=== PATIENT | female | born 1970 | race Caucasian/White ===

== ENCOUNTER → 2016-09-16 | Outpatient (CLI) | payer OTHER ==
--- NOTE | 2016-09-17 00:43 | REP ---
Clinical: Pain. Technique: AP, lateral, bilateral oblique views of the left ankle. Findings: Diffuse soft tissue swelling is appreciated along with small avulsion fracture off the distal fibula / lateral malleolus. Ankle mortise intact. No other fracture or dislocation identified. Impression: Diffuse soft tissue swelling with small avulsion fracture of the lateral malleolus. Signed by Leodan Srinivasan MD 09/17/2016 12:35 A
== END ==
LOC: M WUC 10:38
PROVIDERS: ATTEND Physician Assistant
DX: S82.65XA Nondisplaced fracture of lateral malleolus of left fibula, initial encounter for closed fracture (principal); X58.XXXA Exposure to other specified factors, initial encounter; Y92.9 Unspecified place or not applicable; Y93.9 Activity, unspecified; Y99.9 Unspecified external cause status

== ENCOUNTER → 2017-06-04 | Outpatient (REF) | payer OTHER ==
[2017-06-04 14:12] LABS: RHEUMATOID FACTOR QUANT < 10.0 IU/ML (0-15.0)
[2017-06-04 14:19] LABS: ERYTHROCYTE SEDIMENTATION RATE 3 mm/hr (0-20)
[2017-06-04 14:19] LABS: FOLATE 21.5 NG/ML; VITAMIN B12 LEVEL 455 PG/ML
[2017-06-05 14:14] LABS: ANTINUCLEAR ANTIBODIES DIRECT Negative (Negative)
== END ==
LOC: M LABNEURO 09:03
DX: G43.709 Chronic migraine without aura, not intractable, without status migrainosus (principal)

== ENCOUNTER → 2018-02-02 | Outpatient (CLI) | payer OTHER ==
[2018-02-02 17:04] LABS: BASO # 0.1 10^3/uL (0.0-0.2); BASO % 0.8 % (0.0-1.0); EOS # 0.4 10^3/uL (0.0-0.50); EOS % 5.1 % (0.0-3.0); HEMATOCRIT 38.5 % (36.0-47.0); IMMATURE GRANULOCYTE % 0.1 % (0-3.0); LYMPH # 3.8 10^3/uL (1.5-4.5); MEAN CORPUSCULAR HEMOGLOBIN 30.4 pg (27.0-33.0); MEAN CORPUSCULAR HGB CONC 33.8 g/dl (32.0-36.5); MEAN CORPUSCULAR VOLUME 90.2 fl (80.0-96.0); MONO # 0.6 10^3/uL (0.0-0.8); MONO % 7.7 % (0.0-5.0); NEUTROPHILS # 3.3 10^3/uL (1.8-7.7); NEUTROPHILS % 40.3 % (36.0-66.0); PLATELET COUNT, AUTOMATED 267 10^3/uL (150-450); RED BLOOD COUNT 4.27 10^6/uL (4.00-5.40); RED CELL DISTRIBUTION WIDTH 13.1 % (11.5-14.5); WHITE BLOOD COUNT 8.3 10^3/uL (4.0-10.0)
[2018-02-02 17:59] LABS: ALBUMIN 3.8 GM/DL (3.2-5.2); ALBUMIN/GLOBULIN RATIO 1.12 (1.00-1.93); ALKALINE PHOSPHATASE 55 U/L (45-117); ALT/SGPT 19 U/L (12-78); ANION GAP 7 MEQ/L (8-16); AST/SGOT 12 U/L (7-37); BILIRUBIN,DIRECT < 0.1 MG/DL (0.0-0.2); BILIRUBIN,TOTAL 0.2 MG/DL (0.2-1.0); BLOOD UREA NITROGEN 11 MG/DL (7-18); CALCIUM LEVEL 8.7 MG/DL (8.5-10.1); CARBON DIOXIDE LEVEL 29 MEQ/L (21-32); CHLORIDE LEVEL 108 MEQ/L (98-107); CREATININE FOR GFR 0.74 MG/DL (0.55-1.30); GLOMERULAR FILTRATION RATE > 60.0 (>58); GLUCOSE, FASTING 60 MG/DL (70-100); POTASSIUM SERUM 4.1 MEQ/L (3.5-5.1); SODIUM LEVEL 144 MEQ/L (136-145); TOTAL PROTEIN 7.2 GM/DL (6.4-8.2)
== END ==
LOC: M LAB 16:33
DX: L40.0 Psoriasis vulgaris (principal); Z51.81 Encounter for therapeutic drug level monitoring; Z79.899 Other long term (current) drug therapy
CPT/HCPCS: 80076

== ENCOUNTER → 2018-09-08 | Outpatient (REF) | payer OTHER ==
[2018-09-11 00:08] LABS: ANTI DOUBLE STRAND-DNA AB <1 IU/mL (0-9); ANTINUCLEAR ANTIBODIES DIRECT Positive (Negative); RNP ANTIBODIES <0.2 AI (0.0-0.9); SJOGREN'S ANTI SS-A <0.2 AI (0.0-0.9); SJOGREN'S ANTI SS-B <0.2 AI (0.0-0.9); SMITH ANTIBODIES <0.2 AI (0.0-0.9)
== END ==
LOC: M LAB REF 16:37
PROVIDERS: ATTEND Nurse Practitioner Family
DX: L40.9 Psoriasis, unspecified (principal); M25.50 Pain in unspecified joint

== ENCOUNTER → 2019-06-01 | Outpatient (CLI) | payer OTHER | LOC: M LAB 14:48 | PROVIDERS: ATTEND Nurse Practitioner Family | DX: Z51.81 Encounter for therapeutic drug level monitoring (principal); Z79.899 Other long term (current) drug therapy; L40.0 Psoriasis vulgaris ==

== ENCOUNTER → 2020-01-28 | Outpatient (CLI) | payer OTHER ==
[~2020-01-28] MED LIST: LEVO100T5; RIZA10TA58; TREM100I
== END ==
LOC: M LABSMTC 09:54
PROVIDERS: ATTEND Anesthesiology
DX: Z01.812 Encounter for preprocedural laboratory examination (principal); Z20.828 Contact with and (suspected) exposure to other viral communicable diseases
CPT/HCPCS: C9803; U0003

== ENCOUNTER 2020-02-02 06:57 | Day surgery (SDC) | payer OTHER ==
[~2020-02-02] VITALS: Ht 162.6 cm; Wt 54.8 kg
[~2020-02-02 06:57] MED LIST changes: +NS 1,000 ML IV ONE
[2020-02-02] MEDS ORDERED: LIDOCAINE 2% 100MG/5ML SDV (FOR ANES.) As Ordered ONE (07:04)
[2020-02-02] MEDS ORDERED: propofoL 200 MG/20 ML VIAL As Ordered ONE (07:04)
[2020-02-02 08:17] VITALS: BP 165/89
--- NOTE | 2020-02-02 13:05 | ROOR ---
Patient Name: Nicole Reeves Procedure Date: 02/02/2020 7:43 AM Date of : 1970 Age: 49 Room: [facility] Gender: Female Note Status: Finalized Procedure: Total Colonoscopy to Cecum + ileoscopy Indications: Colon cancer screening in patient at increased risk: Colorectal cancer in mother Providers: Elliot Macario MD Referring MD: Ros MATUTE MD Requesting Provider: Medicines: Monitored Anesthesia Care Complications: No immediate complications. Procedure: Pre-Anesthesia Assessment: - The heart rate, respiratory rate, oxygen saturations, blood pressure, adequacy of pulmonary ventilation, and response to care were monitored throughout the procedure. The Colonoscope was introduced through the anus and advanced to the cecum, identified by appendiceal orifice and ileocecal valve. Findings: The perianal and digital rectal examinations were normal. Non-bleeding internal hemorrhoids were found during retroflexion. The hemorrhoids were small and Grade I (internal hemorrhoids that do not prolapse). No other significant abnormalities were identified in a careful examination of the remainder of the colon. The exam was otherwise without abnormality on direct and retroflexion views. The terminal ileum appeared normal. Impression: - Non-bleeding internal hemorrhoids. - The examination was otherwise normal on direct and retroflexion views. - The examined portion of the ileum was normal. - No specimens collected. - The exam was otherwise normal to the cecum. Recommendation: - Patient has a contact number available for emergencies. The signs and symptoms of potential delayed complications were discussed with the patient. Return to normal activities tomorrow. Written discharge instructions were provided to the patient. - Discharge patient to home. - High fiber diet. - Repeat colonoscopy in 5 years for screening purposes. - Return to referring physician. - The findings and recommendations were discussed with the patient. Elliot Macario MD Elliot Macario MD 02/02/2020 1:05:20 PM Electronically signed by Elliot Macario MD Number of Addenda: 0 Note Initiated On: 02/02/2020 7:43 AM Estimated Blood Loss: Estimated blood loss: none.
== END 2020-02-02 08:19 | disposition home or self-care (01) ==
LOC: M OPP 06:57
PROVIDERS: ATTEND Internal Medicine Gastroenterology
DX: Z12.11 Encounter for screening for malignant neoplasm of colon (principal); Z80.0 Family history of malignant neoplasm of digestive organs; K64.0 First degree hemorrhoids; Z79.899 Other long term (current) drug therapy; Z88.0 Allergy status to penicillin

== ENCOUNTER 2020-05-31 08:54 | Emergency (ER) | payer OTHER ==
[~2020-05-31] VITALS: Ht 162.6 cm; Wt 55.2 kg
[~2020-05-31 08:54] MED LIST changes: -NS 1,000 ML IV ONE
[2020-05-31] MEDS ORDERED: ACETAMINOPHEN 500 MG TAB PO ONE (09:40)
--- NOTE | 2020-05-31 10:10 | REP ---
INDICATION: fall COMPARISON: 09/30/2006 TECHNIQUE: Axial noncontrast images from the skull base to the vertex with coronal reformations. This CT examination was performed using the following dose reduction techniques: Automated exposure control, adjustment of mA and/or kv according to the patient's size, and use of iterative reconstruction technique. FINDINGS: The ventricles, sulci, and cisterns are normal in position and appearance. Saavedra-white differentiation is maintained. No acute intracranial hemorrhage, mass/mass effect, pathology or trauma/injury. No evidence for acute infarction. No extra-axial fluid collection. Calvarium is intact. Paranasal sinuses and mastoid air cells are clear. IMPRESSION: Normal noncontrast head CT. No evidence for acute intracranial pathology or trauma/injury. <Electronically signed by Leodan Srinivasan > 05/31/20 1007
--- NOTE | 2020-05-31 10:13 | REP ---
INDICATION: fall COMPARISON: None. TECHNIQUE: Axial noncontrast images from the skull base to the thoracic inlet with coronal and sagittal re-formations This CT examination was performed using the following dose reduction techniques: Automated exposure control, adjustment of mA and/or kv according to the patient's size, and use of iterative reconstruction technique. FINDINGS: Focal advanced degenerative changes are appreciated at C4-5, C5-6, and to a lesser extent C3-4. C4-5 level demonstrates endplate sclerosis, disc space narrowing, marginal and posterior osteophytosis, and minimal chronic posterior subluxation of approximately 1.2 mm. C5-6 level demonstrates endplate sclerosis, marginal and small posterior osteophyte with satisfactory alignment and associated disc space narrowing. There is no evidence for acute fracture/compression injury. Posterior elements and spinous processes demonstrate mild chronic facet hypertrophy. Paravertebral soft tissues are normal. Spinal canal is grossly patent. IMPRESSION: Chronic degenerative changes. No evidence for acute trauma/injury. <Electronically signed by Leodan Srinivasan > 05/31/20 1443
[2020-05-31 11:05] VITALS: BP 164/82
== END 2020-05-31 11:06 | disposition home or self-care (01) ==
LOC: M ED 08:54
DX: S09.90XA Unspecified injury of head, initial encounter (principal); W00.0XXA Fall on same level due to ice and snow, initial encounter; Y92.89 Other specified places as the place of occurrence of the external cause; Y93.9 Activity, unspecified; Y99.0 Civilian activity done for income or pay; M50.321 Other cervical disc degeneration at C4-C5 level; M50.322 Other cervical disc degeneration at C5-C6 level; M48.02 Spinal stenosis, cervical region; E03.9 Hypothyroidism, unspecified; G43.909 Migraine, unspecified, not intractable, without status migrainosus; L40.9 Psoriasis, unspecified; Z88.0 Allergy status to penicillin; Z79.899 Other long term (current) drug therapy

== ENCOUNTER → 2021-01-30 | Outpatient (CLI) | payer OTHER ==
[~2021-01-30] MED LIST changes: -RIZA10TA58; +RIZA10TA58 PO; +SYNT88TA2 PO; -TREM100I; +TREM100I SC
[2021-01-30 09:44] LABS: HEMATOCRIT 42.1 % (36.0-47.0); HEMOGLOBIN 13.5 g/dl (12.0-15.5); MEAN CORPUSCULAR HEMOGLOBIN 29.3 pg (27.0-33.0); MEAN CORPUSCULAR HGB CONC 32.1 g/dl (32.0-36.5); MEAN CORPUSCULAR VOLUME 91.3 fl (80.0-96.0); PLATELET COUNT, AUTOMATED 292 10^3/uL (150-450); RED BLOOD COUNT 4.61 10^6/uL (4.00-5.40); WHITE BLOOD COUNT 7.6 10^3/uL (4.0-10.0)
[2021-01-30 10:06] LABS: BLOOD UREA NITROGEN 8 MG/DL (7-18); CALCIUM LEVEL 8.9 MG/DL (8.5-10.1); CARBON DIOXIDE LEVEL 31 MEQ/L (21-32); CHLORIDE LEVEL 106 MEQ/L (98-107); CREATININE FOR GFR 0.69 MG/DL (0.55-1.30); GLOMERULAR FILTRATION RATE > 60.0 (>51); GLUCOSE, FASTING 79 MG/DL (70-100); POTASSIUM SERUM 4.2 MEQ/L (3.5-5.1); SODIUM LEVEL 140 MEQ/L (136-145)
--- NOTE | 2021-01-30 21:25 | ECGEPIP ---
[facility] Test Date: 2021-01-30 Pat Name: NORTH WOOD Department: Room: - Gender: Female Staff Home Therapy Rn: LAURYN : 1970 Requested By: Bob Rodriguez Order Number: [id number] Reading MD: Wellington Yip Measurements Intervals [place] Rate: 73 P: 76 VT: 158 QRS: 24 QRSD: 80 T: 52 QT: 386 QTc: 425 Interpretive Statements Sinus rhythm with sinus arrhythmia Cannot rule out Anterior infarct , age undetermined (possibly lead placement) No prior Electronically Signed on 01-30-2021 21:25:50 EDT by Wellington Yip
== END ==
LOC: M EKG 08:26
PROVIDERS: ATTEND Podiatrist
DX: Z01.818 Encounter for other preprocedural examination (principal); M20.21 Hallux rigidus, right foot

== ENCOUNTER → 2021-02-05 | Outpatient (CLI) | payer OTHER | LOC: M LABSMTC 09:58 | PROVIDERS: ATTEND Anesthesiology | DX: Z01.812 Encounter for preprocedural laboratory examination (principal); Z20.822 Contact with and (suspected) exposure to COVID-19 ==

== ENCOUNTER 2021-02-09 07:29 | Day surgery (SDC) | payer OTHER ==
[~2021-02-09] VITALS: Ht 162.6 cm; Wt 54.0 kg
[~2021-02-09 07:29] MED LIST changes: +LIDOCAINE 1% MDV 20ML VIAL SQ PRN; +LR 1,000 ML IV ONE; +VANCOMYCIN HCL 1,000 MG, VIAL MATE ADAPTER 1 EACH in NS 250 ML IV ONE
--- OUTSIDE RECORDS SUMMARY | 2021-02-09 07:32 | CCD | Continuity of Care Document ---
Author Organization Unknown Address Unknown Phone Unavailable Care Team Providers Care Servomechanism Designer Name Role Phone Sarah Coats AUTM [phone] Problems Active Problems Provider Date Hypothyroidism Sraah Pauly, SPORTS CARTOONIST Onset: 05/25/2020 Psoriasis Sarah Pauly, SPORTS CARTOONIST Onset: 05/25/2020 Migraine Sarah Pauly, SPORTS CARTOONIST Onset: 05/25/2020 Herpesvirus infection Sarah Pauly, SPORTS CARTOONIST Onset: 05/25/2020 Polyarthropathy Sarah Pauly, SPORTS CARTOONIST Onset: 05/25/2020 Social History Type Date Description Comments Sex Unknown ETOH Use Consumes 2 glasses of wine per w craig OR 2 BEERS Tobacco Use Start: Unknown Patient has never smoked Allergies and adverse reactions Active Allergies Criticality Reaction | Severity Comments Date Penicillin Unable to assess criticality RASH 09/09/2011 Medications Active Medications SIG Qnty Indications Ordering Provide r Date Levothyroxine Sodium 88mcg Tablets Take One Tablet By Mouth Every Day 90tabs Ros Astorga M.D. 05/25/2020 Tremfya 100mg/ml Solution Pen-Inje ct inject q8 weeks Ashlie Garcia,SPORTS CARTOONIST 09/08/2018 Maxalt-POWERHOUSE HELPER 10mg Tablets Dispers 1 at beginning of h/a, may repeat in 2 hours if needed 9tabs Gianni Castellanos MD 01/09/2017 Valtrex 1gm Tablets 2 pills twice a day x 1 day as needed 4tabs CHRISTELLE Good 12/29/2014 Zovirax 5% Cream use 5x'daily prn 5gm Gianni Castellanos MD 08/12/2012 Immunizations CPT Code Status Date Vaccine Lot # U-[id number] Given 12/29/2017 Influenza,Unspecified Vital Signs Date Vital Result Comment 05/25/2020 1:01pm BP Systolic 126 mmHg RT Arm BP Diastolic 60 mmHg RT Arm Heart Rate 72 /min Height 63.50 inches 5'3.50" Weight 120.50 lb BMI (Body Mass Index) 21.0 kg/m2 10/11/2019 8:33am BP Systolic 118 mmHg BP Diastolic 66 mmHg Results Test Acquired Date Facility Test Result H/L Range Note Complete Blood Count 01/30/2021 [facility] [address], [place] [id number] [phone] White Blood Count 7.6 10 Normal 4.0-10.0 Red Blood Count 4.61 10 Normal 4.00-5.40 Hemoglobin 13.5 g/dL Normal 12.0-15.5 Hematocrit 42.1 % Normal 36.0-47.0 Mean Corpuscular Volume 91.3 fl Normal 80.0-96.0 Mean Corpuscular Hemoglobin 29.3 pg Normal 27.0-33.0 Mean Corpuscular HGB Conc 32.1 g/dL Normal 32.0-36.5 Red Cell Distribution Width 14.1 % Normal 11.5-14.5 Platelet Count, Automated 292 10 Normal 150-450 Nucleated Red Blood Cell % 0.0 % Normal 0-0 Basic Metabolic Profile 01/30/2021 [facility] [address], [place] [id number] [phone] Glucose, Fasting 79 mg/dL Normal 70-100 Blood Urea Nitrogen 8 mg/dL Normal 7-18 Creatinine For GFR 0.69 mg/dL Normal 0.55-1.30 Glomerular Filtration Rate > 60.0 Normal >51 1 Sodium Level 140 mEq/L Normal 136-145 Potassium Serum 4.2 mEq/L Normal 3.5-5.1 Chloride Level 106 mEq/L Normal 98-107 Carbon Dioxide Level 31 mEq/L Normal 21-32 Anion Gap 3 mEq/L Low 8-16 Calcium Level 8.9 mg/dL Normal 8.5-10.1 1 Units are mL/min/1.73 m2 Chronic Kidney Disease Staging per NKF: Stage I & II GFR >=60 Normal to Mildly Decreased Stage III GFR 30-59 Moderately Decreased Stage IV GFR 15-29 Severely Decreased Stage V GFR <15 Very Little GFR Left ESRD GFR <15 on OPERATIONS SUPERINTENDENT Procedures Date Code Description Status 02/02/2020 [id number] Colonoscopy Completed Medical Devices Description No Information Available Encounters Description No Information Available Assessments Description No Information Available Plan of Treatment Future Appointment(s):* 05/30/2021 7:50 am - Lab Schedule at [facility] * 06/01/2021 8:00 am - HAKAN Franks at [facility] 05/25/2020 - HAKAN Franks* Z00.00 Encounter for general adult medical examination without abnormal findings* Comments:* Follow up annually and PRN.COVID diagnosis coverage letter is provided. * E03.9 Hypothyroidism, unspecified* Comments:* Thyroid is oversupplemented, decrease levothyroxine to 88 mcg daily and will come back for repeat TSH in 6 weeks. * B00.1 Herpesviral vesicular dermatitis* Comments:* No current issues, but uses Valtrex/Zovirax when needed. * L40.9 Psoriasis, unspecified* Comments:* Sees dermatology; on Tremfya which has improved her symptoms drastically. * G43.909 Migraine, unspecified, not intractable, without status migra* Comments:* Well controlled using Maxalt when needed. * Z80.0 Family history of malignant neoplasm of digestive organs* Comments:* Colonoscopy is UTD and due in 2024. * M13.0 Polyarthritis, unspecified* Comments:* Has been referred to [facility] rheumatology as per CLEANER ASSISTANT as she also has psoriasis and a family history of psoriatic arthritis. * H61.21 Impacted cerumen, right ear* Comments:* Flushed with warm water by Magdaleno Dumont LPN * Z13.89 Encounter for screening for other disorder * All * New Medication:* Levothyroxine Sodium 88 mcg - Take One Tablet By Mouth Every Day * Comments:* Tetanus none. Flu shot done. Pap smear up to date through Dr. Calixto, mammogram 2019 at [facility]. BSE monthly no changes. Colonoscopy 02/02/20 and f/u recommended in 5 years. COVID 19 vaccine covered diagnosis letter provided. F/U TSH in 6 weeks, routine follow up in one year and PRN.Follow up in one year with repeat labs at that time.Encouraged balanced diet, 4-5 servings of fresh fruits and vegetables daily. Recommended at least 30 minutes of exercise daily and eight 8 oz. glasses of water daily.SBE monthly.RTC PRN for acute illness. COVID precautions are discussed and social distancing/mask use/ frequent hand washing and sanitizing are encouraged.COVID 19 vaccine discussed and recommended. Functional Status Description No Information Available Mental Status Description No Information Available Referrals Description No Information Available
--- OUTSIDE RECORDS SUMMARY | 2021-02-09 07:33 | CCD ---
Author Author [facility] Organization [facility] Address Unknown Phone Unavailable Care Team Providers Care Roll Mill Operator Name Role Phone Pauly, Sarah AVIATION ELECTRICIAN Unavailable Unavailable Pauly, Sarah AVIATION ELECTRICIAN Unavailable Unavailable Pauly, Sarah AVIATION ELECTRICIAN Unavailable Unavailable Pauly, Sarah AVIATION ELECTRICIAN Unavailable Unavailable Pauly, Sarah AVIATION ELECTRICIAN Unavailable Unavailable Pauly, Sarah AVIATION ELECTRICIAN Unavailable Unavailable Pauly, Sarah AVIATION ELECTRICIAN Unavailable Unavailable Pauly, Sarah AVIATION ELECTRICIAN Unavailable Unavailable Pauly, Sarah AVIATION ELECTRICIAN Unavailable Unavailable Pauly, Sarah AVIATION ELECTRICIAN Unavailable Unavailable Pauly, Sarah AVIATION ELECTRICIAN Unavailable Unavailable Pauly, Sarah AVIATION ELECTRICIAN Unavailable Unavailable Pauly, Sarah AVIATION ELECTRICIAN Unavailable Unavailable Pauly, Sarah AVIATION ELECTRICIAN Unavailable Unavailable Pauly, Sarah AVIATION ELECTRICIAN Unavailable Unavailable Pauly, Sarah AVIATION ELECTRICIAN Unavailable Unavailable Pauly, Sarah AVIATION ELECTRICIAN Unavailable Unavailable Pauly, Sarah AVIATION ELECTRICIAN Unavailable Unavailable Pauly, Sarah AVIATION ELECTRICIAN Unavailable Unavailable Pauly, Sarah AVIATION ELECTRICIAN Unavailable Unavailable Pauly, Sarah AVIATION ELECTRICIAN Unavailable Unavailable Pauly, Sarah AVIATION ELECTRICIAN Unavailable Unavailable Pauly, Sarah AVIATION ELECTRICIAN Unavailable Unavailable Pauly, Sarah AVIATION ELECTRICIAN Unavailable Unavailable Pauly, Sarah AVIATION ELECTRICIAN Unavailable Unavailable Pauly, Sarah AVIATION ELECTRICIAN Unavailable Unavailable Pauly, Sarah AVIATION ELECTRICIAN Unavailable Unavailable Pauly, Sarah AVIATION ELECTRICIAN Unavailable Unavailable Pauly, Sarah AVIATION ELECTRICIAN Unavailable Unavailable Pauly, Sarah AVIATION ELECTRICIAN Unavailable Unavailable Pauly, Sarah AVIATION ELECTRICIAN Unavailable Unavailable Pauly, Sarah AVIATION ELECTRICIAN Unavailable Unavailable Pauly, Sarah AVIATION ELECTRICIAN Unavailable Unavailable Pauly, Sarah AVIATION ELECTRICIAN Unavailable Unavailable Pauly, Sarah AVIATION ELECTRICIAN Unavailable Unavailable JIMÉNEZ, L JERALD FRANZ Unavailable Unavailable JIMÉNEZ, L JERALD FRANZ Unavailable Unavailable JIMÉNEZ, L JERALD FRANZ Unavailable Unavailable JIMÉNEZ, L JERALD FRANZ Unavailable Unavailable JIMÉNEZ, L JERALD FRANZ Unavailable Unavailable JIMÉNEZ, L JERALD FRANZ Unavailable Unavailable JIMÉNEZ, L JERALD FRANZ Unavailable Unavailable JIMÉNEZ, L JERALD FRANZ Unavailable Unavailable JIMÉNEZ, L JERALD FRANZ Unavailable Unavailable JIMÉNEZ, L JERALD FRANZ Unavailable Unavailable JIMÉNEZ, L JERALD FRANZ Unavailable Unavailable JIMÉNEZ, L JERALD FRANZ Unavailable Unavailable JIMÉNEZ, L JERALD FRANZ Unavailable Unavailable JIMÉNEZ, L JERALD FRANZ Unavailable Unavailable JIMÉNEZ, L JERALD FRANZ Unavailable Unavailable JIMÉNEZ, L JERALD FRANZ Unavailable Unavailable JIMÉNEZ, L JERALD FRANZ Unavailable Unavailable JIMÉNEZ, L JERALD FRANZ Unavailable Unavailable JIMÉNEZ, L JERALD FRANZ Unavailable Unavailable JIMÉNEZ, L JERALD FRANZ Unavailable Unavailable JIMÉNEZ, L JERALD FRANZ Unavailable Unavailable JIMÉNEZ, L JERALD FRANZ Unavailable Unavailable JIMÉNEZ, L JERALD FRANZ Unavailable Unavailable JIMÉNEZ, L JERALD FRANZ Unavailable Unavailable JIMÉNEZ, L JERALD FRANZ Unavailable Unavailable JIMÉNEZ, L JERALD FRANZ Unavailable Unavailable JIMÉNEZ, L JERALD FRANZ Unavailable Unavailable JIMÉNEZ, L JERALD FRANZ Unavailable Unavailable JIMÉNEZ, L JERALD FRANZ Unavailable Unavailable JIMÉNEZ, L JERALD FRANZ Unavailable Unavailable JIMÉNEZ, L JERALD FRANZ Unavailable Unavailable JIMÉNEZ, L JERALD FRANZ Unavailable Unavailable JIMÉNEZ, L JERALD FRANZ Unavailable Unavailable JIMÉNEZ, L JERALD FRANZ Unavailable Unavailable JIMÉNEZ, L JERALD FRANZ Unavailable Unavailable JIMÉNEZ, L JERALD FRANZ Unavailable Unavailable JIMÉNEZ, L JERALD FRANZ Unavailable Unavailable JIMÉNEZ, L JERALD FRANZ Unavailable Unavailable JIMÉNEZ, L JERALD FRANZ Unavailable Unavailable JIMÉNEZ, L JERALD FRANZ Unavailable Unavailable JIMÉNEZ, L JERALD FRANZ Unavailable Unavailable JIMÉNEZ, L JERALD FRANZ Unavailable Unavailable JIMÉNEZ, L JERALD FRANZ Unavailable Unavailable JIMÉNEZ, L JERALD FRANZ Unavailable Unavailable JIMÉNEZ, L JERALD FRANZ Unavailable Unavailable RING, K AMANDA PA Unavailable Unavailable RING, K AMANDA PA Unavailable Unavailable RING, K AMANDA PA Unavailable Unavailable RING, K AMANDA PA Unavailable Unavailable RING, K AMANDA PA Unavailable Unavailable RING, K AMANDA PA Unavailable Unavailable RING, K AMANDA PA Unavailable Unavailable RING, K AMANDA PA Unavailable Unavailable RING, K AMANDA PA Unavailable Unavailable RING, K AMANDA PA Unavailable Unavailable RING, K AMANDA PA Unavailable Unavailable RING, K AMANDA PA Unavailable Unavailable RING, K AMANDA PA Unavailable Unavailable RING, K AMANDA PA Unavailable Unavailable RING, K AMANDA PA Unavailable Unavailable RING, K AMANDA PA Unavailable Unavailable RING, K AMANDA PA Unavailable Unavailable RING, K AMANDA PA Unavailable Unavailable RING, K AMANDA PA Unavailable Unavailable RING, K AMANDA PA Unavailable Unavailable RING, K AMANDA PA Unavailable Unavailable Re-disclosure Warning The records that you are about to access may contain information from federally-assisted alcohol or drug abuse programs. If such information is present, then the following federally mandated warning applies: This information has been disclosed to you from records protected by federal confidentiality rules (42 CFR part 2). The federal rules prohibit you from making any further disclosure of this information unless further disclosure is expressly permitted by the written consent of the person to whom it pertains or as otherwise permitted by 42 CFR part 2. A general authorization for the release of medical or other information is NOT sufficient for this purpose. The Federal rules restrict any use of the information to criminally investigate or prosecute any alcohol or drug abuse patient.The records that you are about to access may contain highly sensitive health information, the redisclosure of which is protected by Article 27-F of the [facility] Public Health law. If you continue you may have access to information: Regarding HIV / AIDS; Provided by facilities licensed or operated by the [facility] Office of Mental Health; or Provided by the [facility] Office for People With Developmental Disabilities. If such information is present, then the following [facility] mandated warning applies: This information has been disclosed to you from confidential records which are protected by state law. State law prohibits you from making any further disclosure of this information without the specific written consent of the person to whom it pertains, or as otherwise permitted by law. Any unauthorized further disclosure in violation of state law may result in a fine or mcfp sentence or both. A general authorization for the release of medical or other information is NOT sufficient authorization for further disc losure. Family History Family Member Name Family Member Gender Family Member Status Date o f Status Description Data Source(s) Unknown Male Problem [facility] ([facility]) () Unknown Male Problem [facility] ([facility]) Unknown Female Problem [facility] ([facility] Unknown Female Problem [facility] ([facility]) Unknown Female Problem [facility] ([facility]) Encounters Encounter Providers Location Date Indications Data Source(s ) Outpatient 11/24/2020 08:54:27 AM EDT - 021 10:04:04 AM EDT [facility] ([facility]) Outpatient Attender: AMANDA Medina Primary 11/02/2020 02:35:00 PM EDT [facility] ([facility]) Outpatient Attender: Sarah Lutz 12:00:00 PM EST MED[facility] ([facility] ) Outpatient Attender: JERALD [facility] 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 COVID-19 VACCINE Moderna 06/01/2020 12:00:00 AM EST completed [facility] Vaccine Series Complete: NOThis Data was Submitted to [facility] Via [employer]. INFLUENZA VIRUS VACCINE QUADRIVALENT 2019- (6 MOS AN D UP) 12/31/2019 12:00:00 AM EDT completed [facility] Medications Medication Brand Name Start Date Product Form Dose Route Admi nistrative Instructions Pharmacy Instructions Status Indications Reaction Description Data Source(s) 5-325 mg 01/24/2021 12:00:00 AM EDT tablet 20 TAKE ONE TO TWO TABLETS BY MOUTH EVERY 6 HOURS NEEDED FOR POSTOPERATIVE PAIN MAXIMUM DAILY DOSE = 6 TAKE ONE TO TWO TABLETS BY MOUTH EVERY 6 HOURS NEEDED FOR POSTOPERATIVE PAIN MAXIMUM DAILY DOSE = 6 SOLD: 01/28/2021 [facility] rizatriptan 10 MG Disintegrating Oral Tablet RIZATRIPTAN GARO ZOATE 11/22/2020 12:00:00 AM EDT tablet,disintegrating 9 DISSOLVE O NE TABLET BY MOUTH AT THE ONSET OF HEADACHE, MAY REPEAT IN 2 HOURS IF NEEDED DISSOLVE ONE TABLET BY MOUTH AT THE ONSET OF HEADACHE, MAY REPEAT IN 2 HOURS IF NEEDED SOLD: 11/26/2020 [facility] Levothyroxine Sodium 0.088 MG Oral Tablet Levothyroxine Sodi um 05/25/2020 12:00:00 AM EST active M EDTHOMAS ([facility]) valacyclovir 1000 MG Oral Tablet VALACYCLOVIR HCL 04/25/2020 12: 00:00 AM EST tablet 4 TAKE TWO TABLETS BY MOUTH TWICE A DAY FOR 1 DAY NEEDED TAKE TWO TABLETS BY MOUTH TWICE A DAY FOR 1 DAY NEEDED SOLD: 05/02/2020 [facility] valacyclovir 1000 MG Oral Tablet VALACYCLOVIR HCL 04/25/2020 12: 00:00 AM EST tablet 4 TAKE TWO TABLETS BY MOUTH TWICE A DAY FOR 1 DAY NEEDED TAKE TWO TABLETS BY MOUTH TWICE A DAY FOR 1 DAY NEEDED SOLD: 04/25/2020 [facility] valacyclovir 1000 MG Oral Tablet VALACYCLOVIR HCL 04/25/2020 12: 00:00 AM EST tablet 4 TAKE TWO TABLETS BY MOUTH TWICE A DAY FOR 1 DAY NEEDED TAKE TWO TABLETS BY MOUTH TWICE A DAY FOR 1 DAY NEEDED SOLD: 01/14/2021 [facility] 5 % 01/26/2020 12:00:00 AM EDT cream 5 APPLY 5 TIMES PER DAY APPLY 5 TIMES PER DAY SOLD: 01/28/2020 [facility] 17.5-3.13-1.6 gram 01/25/2020 12:00:00 AM EDT recon soln 354 USE DIRECTED USE DIRECTED SOLD: 01/25/2020 [facility] Insurance Providers Payer name Policy type / Coverage type Policy ID Covered democrat ID Covered democrat's relationship to schmitz Policy Schmitz Plan Information United Hcare/Multiplan Medigap Part B [id number] Self [id number] United Hcare/Multiplan Medigap Part B [id number] Self i/[facility] Medigap Part B [id number] Self [id number] Ghi/[employer] Medigap Part B [id number] Self BS [place] Trad/ Medigap Part B [id number] Family Dependent [id number] BS [place] Trad/MX Commercial [id number] Family Dependent [facility] Part B [id number] Self [id number] [place] Ppo Commercial [id number] Self [id number] [employer] Ppo Commercial [id number] Self [id number] [employer] Ppo Commercial [id number] Self [facility] Part B [id number] Self [id number] [place] (pr) Commercial [id number] Self [id number] [place] (pr) Commercial [id number] Self [id number] [employer] (pr) Commercial [id number] Self [id number] [place] (pr) Commercial [id number] Self [id number] [facility] (New [place]) Commercial [id number] Self STATE INSURANCE FUND [id number] SP [id number] [facility] Commercial Insurance Co. [id number] Self [id number] SERGIO CLAIM ADMIN WORK COMP [id number] SP [id number] BS [place] Trad/MX Medigap Part B [id number] Self [id number] R [facility] [id number] SP [id number] r Commercial [id number] Self [id number] R O [id number] S [id number] [employer] [id number] SP [id number] [employer] Commercial [id number] Self [id number] [employer] Commercial [id number] Self BS [place] Trad/MX Medigap Part B [id number] Self [facility] [id number] SP [id number] Problems, Conditions, and Diagnoses Code Display Name Description Problem Type Effective Dates Data Source(s) 43151313 Polyarthropathy Polyarthropathy Problem 05/25/2020 12:0 0:00 AM EST MED[facility] ([facility]) [id number] Herpesvirus infection Herpesvirus infection Problem 05/25/2020 12:00:00 AM EST [facility] ([facility]) [id number] Migraine Migraine Problem 05/25/2020 12:00:00 AM ES T [facility] ([facility]) [id number] Psoriasis Psoriasis Problem 05/25/2020 12:00:00 AM ES T [facility] ([facility]) [id number] Hypothyroidism Hypothyroidism Problem 05/25/2020 12:00: 00 AM EST [facility] ([facility]) Surgeries/Procedures Procedure Description Date Indications Data Source(s) OFFICE OUTPATIENT NEW 30 MINUTES 11/02/2020 12:00:00 A M EDT [facility] ([facility]) OFFICE OUTPATIENT NEW 30 MINUTES 11/02/2020 12:00:00 A M EDT [facility] ([facility]) Impacted Cerumen Irrigat/Lavage 05/25/2020 12:00:00 AM EST MED[facility] ([facility]) Colonoscopy 02/02/2020 12:00:00 AM EST M EDENT ([facility]) COLONOSCOPY FLX DX W/WO COLLJ SPECIMENS 02/02/2020 12: 00:00 AM EST [facility] ([facility]) Results ID Date Data Source [id number] 01/30/2021 09:01:00 AM EDT [facility] ([facility]) Name Value Range Interpretation Code Description Data Magdalena rce(s) Supporting Document(s) Blood Urea Nitrogen 8 mg/dL 7-18 [facility] ([facility]) Glucose, Fasting 79 mg/dL 70-100 [facility] ([facility]) Glomerular Filtration Rate Laboratory test result MEDENT ([facility]) <content>Units are mL/min/1.73 m2</content>
<content></content>
<content>Chronic Kidney Disease Staging per NKF:</content>
<content></content>
<content>Stage I & II GFR >=60 Normal to Mildly Decreased</content>
<content>Stage III GFR 30-59 Moderately Decreased</content>
<content>Stage IV GFR 15-29 Severely Decreased</content>
<content>Stage V GFR <15 Very Little GFR Left</content>
<content>ESRD GFR <15 on FEDERAL JAVA DEVELOPER</content>
<content></content> Sodium Level 140 meq/L 136-145 MED[facility] ([facility]) Creatinine For GFR 0.69 mg/dL 0.55-1.30 [facility] ([facility]) Chloride Level 106 meq/L 98-107 [facility] ([facility]) Carbon Dioxide Level 31 meq/L 21-32 [facility] ([facility]) Potassium Serum 4.2 meq/L 3.5-5.1 MED[facility] ([facility]) Calcium Level 8.9 mg/dL 8.5-10.1 MED[facility] ([facility]) Anion Gap 3 meq/L 8-16 [facility]) ID Date Data Source [id number] 01/30/2021 09:01:00 AM EDT MED[facility] ([facility]) Name Value Range Interpretation Code Description Data Magdalena rce(s) Supporting Document(s) White Blood Count 7.6 10 4.0-10.0 MED[facility] ([facility]) Hematocrit 42.1 % 36.0-47.0 [facility] ([facility]) Hemoglobin 13.5 g/dL 12.0-15.5 MED[facility] ([facility]) Red Blood Count 4.61 10 4.00-5.40 MED[facility] ([facility]) Mean Corpuscular Volume 91.3 fl 80.0-96.0 MED[facility] ([facility]) Mean Corpuscular Hemoglobin 29.3 pg 27.0-33.0 ME DENT ([facility]) Mean Corpuscular HGB Conc 32.1 g/dL 32.0-36.5 MEDE NT ([facility]) Nucleated Red Blood Cell % 0.0 % 0-0 MED ENT ([facility]) Platelet Count, Automated 292 10 150-450 MEDE NT ([facility]) Red Cell Distribution Width 14.1 % 11.5-14.5 ME DENT ([facility]) ID Date Data Source [id number] 11/24/2020 10:00:00 AM EDT [facility] Name Value Range Interpretation Code Description Data Magdalena rce(s) Supporting Document(s) SARS-CoV-2 RNA Resp Ql MARYJO+probe NOT DETECTED [facility] This lab was ordered by YAYA hilton and reported by YAYA Luo. ID Date Data Source [id number] 05/23/2020 08:04:00 AM EST MED[facility] ([facility]) Name Value Range Interpretation Code Description Data Magdalena rce(s) Supporting Document(s) Thyrotropin [Units/volume] in Serum or Plasma by Detec tion limit <= 0.05 mIU/L 0.03 uIU/mL 0.36-3.74 MED[facility] ([facility] ) NOTE: RESULT VERIFIED. ID Date Data Source [id number] 05/23/2020 08:04:00 AM EST [facility] ([facility]) Name Value Range Interpretation Code Description Data Magdalena rce(s) Supporting Document(s) Cholesterol in HDL [Mass/volume] in Serum or Plasma 72 mg/dL 35-60 [facility] ([facility]) Triglyceride [Mass/volume] in Serum or Plasma 59 mg/dL 30-150 [facility] ([facility]) Cholesterol [Mass/volume] in Serum or Plasma 180 mg/dL 131-200 [facility] ([facility]) Cholesterol in LDL [Mass/volume] in Serum or Plasma by calcu lation 96 CALC 50-159 [facility] ([facility]) ID Date Data Source [id number] 05/23/2020 08:04:00 AM EST MED[facility] ([facility]) Name Value Range Interpretation Code Description Data Magdalena rce(s) Supporting Document(s) Glucose [Mass/volume] in Serum or Plasma 89 mg/dL 74-99 [facility] ([facility]) 100-125 mg/dL PRE-DIABETES/FASTING >126 mg/dL DIABETES/FASTING Urea nitrogen [Mass/volume] in Serum or Plasma 12 mg/dL 7-18 [facility] ([facility]) Creatinine 0.9 mg/dL 0.6-1.3 [facility] Sodium [Moles/volume] in Serum or Plasma 144 meq/L 136-145 [facility] ([facility]) Potassium [Moles/volume] in Serum or Plasma 4.2 meq/L 3.5-5.1 [facility] ([facility]) Chloride [Moles/volume] in Serum or Plasma 105 meq/L 98-107 [facility] ([facility]) Glomerular filtration rate/1.73 sq M pre dicted among non-blacks [Volume Rate/Area] in Serum or Plasma by Creatinine-based formula (MDRD) Laboratory test result MEDENT ([facility] ) Carbon dioxide, total [Moles/volume] in Serum or Plasma 28 meq/L 21 -32 [facility] ([facility]) Calcium [Mass/volume] in Serum or Plasma 9.3 mg/dL 8.5-10.1 [facility] ([facility]) Glomerular filtration rate/1.73 sq M pre dicted among blacks [Volume Rate/Area] in Serum or Plasma by Creatinine-based formula (MDRD) Laboratory test result MED[facility] ([facility]) <content>CHRONIC KIDNEY DISEASE STAGING PER NKF</content>
<content></content>
<content>STAGE I & II GFR >= 60 NORMAL TO MILDLY DECREASED</content>
<content>STAGE III GFR 30-59 MODERATELY DECREASED</content>
<content>STAGE IV GFR 15-29 SEVERELY DECREASED</content>
<content>STAGE V GFR <15 VERY LITTLE GFR LEFT</content>
<content>ESRD GFR <15 ON FEDERAL JAVA DEVELOPER</content>
<content></content> ID Date Data Source [id number] 05/17/2020 12:00:00 AM EST [facility] Name Value Range Interpretation Code Description Data Magdalena rce(s) Supporting Document(s) SARS-CoV2 Rapid Antigen Negative [facility] This lab was ordered by [facility] and reported by [facility]. ID Date Data Source [id number] 05/12/2020 01:25:00 PM EST [facility] Name Value Range Interpretation Code Description Data Magdalena rce(s) Supporting Document(s) SARS-CoV-2, RNA: Not Detected [facility] This lab was ordered by [facility] and reported by [facility]. ID Date Data Source [id number] 03/15/2020 12:00:00 PM EST [facility] ([facility]) Name Value Range Interpretation Code Description Data Magdalena rce(s) Supporting Document(s) TP Reflex HPV ASCUS Laboratory test result [facility] ([facility]) TP Reflex HPV ASCUS Laboratory test result MED[facility] ([facility]) SPECIMEN PART------ A. Cervical, Endocervical, ThinPrep Pap ([employer]) CYTOLOGY HX-------- Other Information: Post-menopausal Previous Normal Pap: 03/03/19 FINAL DIAGNOSIS---- INTERPRETATION: Negative for Intraepithelial Lesion or Malignancy. SPECIMEN ADEQUACY:Satisfactory for evaluation. Endocervical/transformation zone component present. ID Date Data Source [id number] 01/28/2020 10:00:00 AM EDT [facility] Name Value Range Interpretation Code Description Data Magdalena rce(s) Supporting Document(s) SARS coronavirus 2 RNA [facility] This lab was ordered by [facility] and reported by [facility]. ID Date Data Source [id number] 01/18/2020 08:15:00 AM EDT [facility] ([facility]) Name Value Range Interpretation Code Description Data Magdalena rce(s) Supporting Document(s) Thyrotropin [Units/volume] in Serum or Plasma by Detec tion limit <= 0.05 mIU/L 0.35 uIU/mL 0.36-3.74 [facility] Procedure Social History Code Duration Value Status Description Data Source(s ) Smoking 11/02/2020 12:00:00 AM EDT Patient has never smoked co mpleted Patient has never smoked [facility] ([facility]) Smoking 03/15/2020 12:00:00 AM EST Never Smoked Cigarettes com pleted Never Smoked Cigarettes [facility] ([facility]) Vital Signs ID Date Data Source [id number] Name Value Range Interpretation Code Description Data Source(s) Body weight 120.00 [lb_av] 120.00 [lb_av] MEDEN T ([facility]) Systolic blood pressure 168 mm[Hg] 168 mm[Hg] M EDENT ([facility]) Diastolic blood pressure 108 mm[Hg] 108 mm[Hg] [facility] ([facility]) Heart rate 78 /min 78 /min [facility] Respiratory rate 14 /min 14 /min [facility] ( [facility] Oxygen saturation in Arterial blood by Pulse oximetry 99 % 99 % [facility] ([facility]) Body temperature 96.8 [degF] 96.8 [degF] [facility] ([facility]) Body height 64 [in_i] 64 [in_i] [facility] ([facility]) 5'4" Body mass index (BMI) [Ratio] 20.6 kg/m2 20.6 k g/m2 [facility] ([facility]) Systolic blood pressure 126 mm[Hg] 126 mm[Hg] M EDENT ([facility]) RT Arm Diastolic blood pressure 60 mm[Hg] 60 mm[Hg] [facility] ([facility]) RT Arm Body mass index (BMI) [Ratio] 21.0 kg/m2 21.0 k g/m2 [facility] ([facility]) Heart rate 72 /min 72 /min [facility] ([facility]) Body height 63.50 [in_i] 63.50 [in_i] [facility] ([facility]) 5'3.50" Body weight 120.50 [lb_av] 120.50 [lb_av] MEDEN T ([facility]) Body height 63.25 [in_i] 63.25 [in_i] MED[facility] ([facility]) 5'3.25" Systolic blood pressure 124 mm[Hg] 124 mm[Hg] M EDENT ([facility]) Diastolic blood pressure 76 mm[Hg] 76 mm[Hg] [facility] ([facility]) Body weight 120.00 [lb_av] 120.00 [lb_av] MEDEN T ([facility]) Body mass index (BMI) [Ratio] 21.1 kg/m2 21.1 k g/m2 [facility] ([facility]) Body surface area Derived from formula 1.56 m2 1.56 m2 MED[facility] ([facility])
[2021-02-09] MEDS ORDERED: VIAL MATE ADAPTER XX ONE (07:51)
[2021-02-09] MEDS ORDERED: fentaNYL 100 MCG/2 ML INJECTION (J3010) As Ordered ONE (08:31)
[2021-02-09] MEDS ORDERED: MIDAZOLAM INJ 2MG/2ML VIAL (J2250 PER 1MG) As Ordered ONE (08:31)
[2021-02-09] MEDS ORDERED: ONDANSETRON 4MG/2ML VIAL As Ordered ONE (08:31)
[2021-02-09] MEDS ORDERED: dexameTHASONE 4 MG/ML 1ML VIAL (J1100 PER 1MG) As Ordered ONE ×2 (08:31→09:35)
[2021-02-09] MEDS ORDERED: propofoL 200 MG/20 ML VIAL As Ordered ONE (08:32)
[2021-02-09] MEDS ORDERED: LIDOCAINE 2% 100MG/5ML SDV (FOR ANES.) As Ordered ONE (08:32)
[2021-02-09] MEDS ORDERED: KETOROLAC 60MG 2ML VIAL As Ordered ONE (09:06)
[2021-02-09] MEDS ORDERED: ACETAMINOPHEN 1000MG 100ML IV BTL (OFIRMEV) (J0131 PER 10MG) As Ordered ONE (09:06)
[2021-02-09] MEDS ORDERED: LIDOCAINE 2% MDV 20ML VIAL As Ordered ONE (09:35)
[2021-02-09] MEDS ORDERED: GENTAMICIN SULF 80MG/2ML VIAL As Ordered ONE (09:35)
[2021-02-09] MEDS ORDERED: BUPIVACAINE HCL 0.5% 30 ML VIAL As Ordered ONE (09:36)
--- NOTE | 2021-02-09 13:03 | RO ---
OPERATIVE NOTE DATE OF OPERATION: 02/09/2021 PREOPERATIVE DIAGNOSIS: Hallux limitus deformity right foot. POSTOPERATIVE DIAGNOSIS: Hallux limitus deformity right foot. PROCEDURE PERFORMED: Cheilectomy 1st metatarsophalangeal joint right foot. SURGEON: Bob Martinez DPM [employer]: None. ESTIMATED BLOOD LOSS: 1 mL. HEMOSTASIS: Ankle pneumatic tourniquet at 200 mmHg for 27 minutes right ankle. HARDWARE UTILIZED: None. ANESTHESIA: Local MAC. IRRIGATION: Dilute Gentamicin solution. DESCRIPTION OF PROCEDURE: On 02/09/2021 this 50-year-old white female was taken from her hospital room to the operating room and placed on the operating table in the supine position. Following induction of IV sedation and local regional anesthesia the right lower extremity was prepped and draped in usual aseptic manner. After ankle pneumatic tourniquet was placed over well padded site sterile draping was completed and the following procedure was performed: Cheilectomy 1st metatarsophalangeal joint right foot, Attention was directed to the patient's right foot. There was noted to be hallux limitus deformity. At this time a 6 cm incision was placed over the 1st metatarsophalangeal joint medial to the extensor tendon. The incision was deepened through subcutaneous tissues and all crossing venous tributaries were identified, underscored, ligated, and electrocoagulated as necessary. Linear capsulotomy was performed in same plane as original skin incision. Capsular and periosteal structures were then dissected in one continuous layer, dorsal, medial and lateral, this created a capsular periosteal type envelope. This brought into view spurring over the 1st metatarsal and proximal phalanx. Inspection of the 1st metatarsal revealed approximately 30% of the articular cartilage to be eroded. Utilizing sagittal saw this 30% was excised from distal to proximal [id number]. Spurring was also noted on the medial and lateral aspects. This was rongeured off the metatarsal. Utilizing power saw an osteotomy was performed to medial eminence from distal to proximal existing medial to sesamoidal groove. This was extirpated from the wound. The dorsal 20% of the proximal phalanx was then excised from distal to proximal [id number]. The articular cartilage was inspected, there was a small remaining area of erosion of cartilage which was then drilled with a 0.045 wire to promote cartilaginous ingrowth. The wound was then flushed with copious amounts of dilute Gentamicin solution. Dissection was carried into the 1st intermetatarsal space where the fibular sesamoid was released. The wound was again flushed with dilute Gentamicin solution. Attention was then directed toward closure of the capsular structures, coapted and maintained utilizing 3-0 Monocryl in simple interrupted type fashion, subcutaneous tissues coapted and maintained using 4-0 Monocryl in simple interrupted type fashion and skin incision coapted and maintained using 5-0 Monocryl in continuous subcuticular type fashion which was reinforced with Steri-Strips. At the completion of the surgical procedure 4 mg of Dexamethasone sodium phosphate and 1 mL of 0.5% Marcaine was instilled proximal to the surgical site. Attention was turned toward bandaging. Sterile compressive bandage was applied consisting of Adaptic, 4 x 4s, 4 x 4 splint, Maggi, Kerlix and Coban. The ankle pneumatic tourniquet was rapidly deflated and instantaneous capillary filling time was noted to digits 1-5 of the patient's right foot. The patient apparently tolerated the surgical procedure well and was taken from the OR to the recovery room for further monitoring by the anesthesia department. Postoperative instructions were given upon discharge.
[2021-02-09 13:09] VITALS: BP 135/65
--- NOTE | 2021-02-09 13:47 | REP ---
INDICATION: post operative. COMPARISON: None. TECHNIQUE: Four views (portable postoperative) FINDINGS: There has been a bunionectomy at the medial aspect distal head of the 1st metatarsal. Soft tissue swelling and some subcutaneous air and noted. There is a plantar calcaneal heel spur. The other metatarsals, all of the phalanges, tarsal bones and hindfoot otherwise intact. There is a dorsal spur off the anterior process of the navicular on the lateral view. IMPRESSION: 1. Status post bunionectomy distal 1st metatarsal with typical postoperative edema and subcutaneous air. <Electronically signed by Delfino Raygoza > 02/09/21 [id number]
== END 2021-02-09 14:00 | disposition home or self-care (01) ==
LOC: M SDC 07:29
PROVIDERS: ATTEND Podiatrist
DX: M20.21 Hallux rigidus, right foot (principal); E03.9 Hypothyroidism, unspecified; L40.9 Psoriasis, unspecified; G43.909 Migraine, unspecified, not intractable, without status migrainosus; Z79.899 Other long term (current) drug therapy; Z88.0 Allergy status to penicillin
CPT/HCPCS: 28289; 73630; 76000; 88300; 97116; 97530; J0131; J1100; J1580; J1885; J2250; J2405; J3010; J3370

== ENCOUNTER → 2021-07-09 | Outpatient (REF) | payer OTHER ==
[~2021-07-09] MED LIST changes: -LIDOCAINE 1% MDV 20ML VIAL SQ PRN; -LR 1,000 ML IV ONE; -VANCOMYCIN HCL 1,000 MG, VIAL MATE ADAPTER 1 EACH in NS 250 ML IV ONE
== END ==
LOC: M LAB REF 16:21
PROVIDERS: ATTEND Registered Nurse
DX: M13.0 Polyarthritis, unspecified (principal)

== ENCOUNTER → 2022-01-10 | Outpatient (CLI) | payer OTHER ==
[2022-01-10 16:35] LABS: BASO # 0.1 10^3/uL (0.0-0.2); BASO % 0.6 % (0.0-1.0); EOS # 0.2 10^3/uL (0.0-0.5); EOS % 2.3 % (0.0-3.0); HEMATOCRIT 42.1 % (36.0-47.0); HEMOGLOBIN 13.7 g/dl (12.0-15.5); LYMPH # 3.1 10^3/uL (1.5-5.0); LYMPH % 40.3 % (24.0-44.0); MEAN CORPUSCULAR HEMOGLOBIN 29.5 pg (27.0-33.0); MEAN CORPUSCULAR HGB CONC 32.5 g/dl (32.0-36.5); MEAN CORPUSCULAR VOLUME 90.5 fl (80.0-96.0); MONO # 0.7 10^3/uL (0.0-0.8); MONO % 8.4 % (2.0-8.0); NEUTROPHILS # 3.7 10^3/uL (1.5-8.5); NEUTROPHILS % 48.1 % (36.0-66.0); PLATELET COUNT, AUTOMATED 368 10^3/uL (150-450); RED BLOOD COUNT 4.65 10^6/uL (4.00-5.40); WHITE BLOOD COUNT 7.7 10^3/uL (4.0-10.0)
[2022-01-10 17:10] LABS: ERYTHROCYTE SEDIMENTATION RATE 4 mm/hr (0-30)
[2022-01-10 17:23] LABS: ALBUMIN 4.3 GM/DL (3.2-5.2); ALT/SGPT 24 U/L (12-78); BILIRUBIN,TOTAL 0.4 MG/DL (0.2-1.0); BLOOD UREA NITROGEN 12 MG/DL (7-18); CALCIUM LEVEL 9.2 MG/DL (8.5-10.1); CARBON DIOXIDE LEVEL 30 MEQ/L (21-32); CHLORIDE LEVEL 104 MEQ/L (98-107); CREATININE FOR GFR 0.78 MG/DL (0.55-1.30); GLOMERULAR FILTRATION RATE > 60.0 (>51); GLUCOSE, FASTING 80 MG/DL (70-100); POTASSIUM SERUM 3.9 MEQ/L (3.5-5.1); SODIUM LEVEL 140 MEQ/L (136-145); TOTAL PROTEIN 7.9 GM/DL (6.4-8.2)
== END ==
LOC: M WUC 14:42
PROVIDERS: ATTEND Internal Medicine Rheumatology
DX: R76.8 Other specified abnormal immunological findings in serum (principal); L40.8 Other psoriasis; M25.78 Osteophyte, vertebrae; R93.6 Abnormal findings on diagnostic imaging of limbs; M47.816 Spondylosis without myelopathy or radiculopathy, lumbar region; M47.814 Spondylosis without myelopathy or radiculopathy, thoracic region

== ENCOUNTER → 2023-09-19 | Outpatient (CLI) | payer OTHER | LOC: M WHC 12:39 | PROVIDERS: ATTEND Nurse Practitioner Family | DX: D48.5 Neoplasm of uncertain behavior of skin (principal) ==

== ENCOUNTER → 2023-10-06 | Outpatient (CLI) | payer OTHER ==
[~2023-10-06] MED LIST changes: +LIDOCAINE 1% MDV 20ML VIAL As Ordered ONE
[2023-10-06 13:50] VITALS: TEMP 98.1
[2023-10-06 14:30] VITALS: BP 157/82; O2SAT 100
== END ==
LOC: M IRPRO 13:05
PROVIDERS: ATTEND Nurse Practitioner Adult Health
DX: D48.5 Neoplasm of uncertain behavior of skin (principal)

== ENCOUNTER → 2024-01-30 | Outpatient (CLI) | payer OTHER ==
[~2024-01-30] MED LIST changes: -LIDOCAINE 1% MDV 20ML VIAL As Ordered ONE
== END ==
LOC: M EKG 13:31
PROVIDERS: ATTEND Anesthesiology
DX: Z01.818 Encounter for other preprocedural examination (principal); E03.9 Hypothyroidism, unspecified; R00.1 Bradycardia, unspecified; R94.31 Abnormal electrocardiogram [ECG] [EKG]

== ENCOUNTER 2024-02-06 06:24 | Day surgery (SDC) | payer OTHER ==
[~2024-02-06] VITALS: Ht 162.6 cm; Wt 53.5 kg
[2024-02-06] MEDS ORDERED: MIDAZOLAM INJ 2MG/2ML VIAL As Ordered ONE (07:00)
[2024-02-06] MEDS ORDERED: ONDANSETRON 4MG 2ML VIAL As Ordered ONE (07:00)
[2024-02-06] MEDS ORDERED: LIDOCAINE 2% 100MG/5ML SDV (FOR ANES.) As Ordered ONE (07:00)
[2024-02-06] MEDS ORDERED: ROCURONIUM BROMIDE 50MG/5ML VIAL As Ordered ONE (07:00)
[2024-02-06] MEDS ORDERED: fentaNYL 100 MCG/2 ML INJECTION As Ordered ONE (07:00)
[2024-02-06] MEDS ORDERED: propofoL 200 MG/20 ML VIAL As Ordered ONE (07:01)
[2024-02-06] MEDS ORDERED: ACETAMINOPHEN 1000MG/100ML IV BAG As Ordered ONE (07:01)
[2024-02-06] MEDS ORDERED: SUGAMMADEX SODIUM 500 MG/5 ML VIAL (BRIDION) As Ordered ONE (07:01)
[2024-02-06] MEDS ORDERED: KETOROLAC 60MG 2ML VIAL As Ordered ONE (07:01)
[2024-02-06] MEDS ORDERED: dexmedeTOMIDine (4MCG/ML)200MCG/50ML BTL (PRECEDEX) As Ordered ONE (07:38)
[2024-02-06] MEDS: ceFAZolin SOD 2 GM in IV 1 EA IV ONE (07:41)
[2024-02-06] MEDS ORDERED: ePHEDrine SULFATE 25 MG/5 ML(5MG/ML) SYRINGE As Ordered ONE (07:53)
[2024-02-06 09:17] VITALS: BP 125/67; TEMP 97.5; O2SAT 100
== END 2024-02-06 09:25 | disposition home or self-care (01) ==
LOC: M SDC 06:24
PROVIDERS: ATTEND Surgery
DX: D17.1 Benign lipomatous neoplasm of skin and subcutaneous tissue of trunk (principal); E03.9 Hypothyroidism, unspecified; L40.9 Psoriasis, unspecified; G43.909 Migraine, unspecified, not intractable, without status migrainosus; Z88.0 Allergy status to penicillin; Z79.899 Other long term (current) drug therapy
CPT/HCPCS: 11406; 88304; J0131; J0665; J0690; J1100; J1885; J2250; J2405; J3010

== ENCOUNTER 2025-01-05 06:59 | Day surgery (SDC) | payer OTHER ==
[~2025-01-05] VITALS: Ht 162.6 cm; Wt 52.6 kg
[2025-01-05] MEDS ORDERED: LIDOCAINE 2% 100 MG/5 ML SDV (FOR ANES.) As Ordered ONE (07:01)
[2025-01-05 08:34] VITALS: TEMP 98.8
[2025-01-05 08:54] VITALS: BP 141/65; O2SAT 100
== END 2025-01-05 09:10 | disposition home or self-care (01) ==
LOC: M OPP 06:59
PROVIDERS: ATTEND Internal Medicine Gastroenterology
DX: Z12.11 Encounter for screening for malignant neoplasm of colon (principal); K64.0 First degree hemorrhoids; K57.30 Diverticulosis of large intestine without perforation or abscess without bleeding; Z80.0 Family history of malignant neoplasm of digestive organs